=== PATIENT | female | born 1995 | race Caucasian/White ===

== ENCOUNTER → 2019-07-25 | Outpatient (CLI) | payer OTHER ==
[~2019-07-25] VITALS: Ht 162.6 cm; Wt 61.4 kg
[~2019-07-25] MED LIST: CEPH500C PO; FEXO180T PO; IBP200T PO; IRON DEXTRAN 1,000 MG/NS 250 ML IVPB IV ONE; IRON DEXTRAN 25 MG/NS 6.25 ML TOTAL VOLUME IV ONE
[2019-07-25 10:10] VITALS: BP 122/87
== END ==
LOC: SDC 10:02
PROVIDERS: ATTEND Internal Medicine
DX: Z01.89 Encounter for other specified special examinations (principal)
CPT/HCPCS: 96365; 96366